=== PATIENT | male | born 1955 | race Caucasian/White ===

== ENCOUNTER → 2017-08-08 | Outpatient (CLI) | payer OTHER ==
[~2017-08-08] MED LIST: ATENOLOL50 MG PO; ATORVASTATIN CA20 MG PO; CITALOPRAM HBR20 MG PO; GLIPIZIDE5 MG PO; IOPAMIDOL 370 MG/ML 200 ML INFUS..BTL INJ ONE; LISINOPRIL10 MG PO; SODIUM CHLORIDE 0.9% 250ML 250 ML ONE
[2017-08-08 14:37] LABS: BLOOD UREA NITROGEN 13 mg/dL (7-26); BUN/CREATININE RATIO 13 (6-25); CREATININE, SERUM 1.04 mg/dL (0.72-1.25); EST GLOMERULAR FILTRATION RATE > 60 ML/MIN (60-)
--- NOTE | 2017-08-08 18:59 | Diagnostic Imaging Report ---
PROCEDURE: CT ABDOMEN \T\ PELVIS W/WO CONTRAST/HEMATURIA PROTOCOL TECHNIQUE: The abdomen and pelvis were scanned utilizing a multidetector helical scanner from the diaphragm to the lesser trochanter before and after the IV administration of 150 cc of Isovue 370 given as a split bolus, and the oral administration of water. Coronal and sagittal multiplanar reformations were obtained. COMPARISON: None. INDICATIONS: MICROSCOPIC HEMATURIA FINDINGS: LOWER THORAX: Unremarkable. HEPATOBILIARY: Borderline low attenuation of the hepatic parenchyma prominently in the right lobe, likely reflecting mild steatosis. No focal hepatic lesions. No biliary ductal dilation. Gallbladder is unremarkable. SPLEEN: No splenomegaly. PANCREAS: No focal masses or ductal dilatation. ADRENALS: No adrenal nodules. KIDNEYS/URETERS: 0.6 x 0.5 cm nonobstructing calculus in the inferior pole of the right kidney (series 3, image 81). No other renal or any ureteral calculi. No hydronephrosis, hydroureter or obstruction. 3.8 x 5.0 x 3.9 cm lobulated hypodense fluid density nonenhancing lesion in in the interpolar region of the right kidney (series 6, image 73), with possible thin noncalcified nonenhancing septation (sagittal postcontrast image 41). Mostly exophytic 0.6 cm fluid density nonenhancing lesion in the posterior interpolar region of the left kidney (series 6, image 72), consistent with a simple cyst. Mild bilateral nonspecific perinephric stranding. No solid enhancing masses. The there is good contrast opacification of bilateral renal collecting systems, renal pelves, left ureter, and proximal and mid aspects of the right ureter. No filling defects, strictures, or extrinsic compressions. PELVIC ORGANS/BLADDER: Bladder shows no focal lesions, wall thickening, or calculi. The prostate is unremarkable. Calcification of the vas deferens. PERITONEUM / RETROPERITONEUM: No free air or fluid. LYMPH NODES: No lymphadenopathy. VESSELS: Atherosclerotic calcification of the abdominal aorta and iliac vessels. GI TRACT: No bowel dilation or evidence of obstruction. BONES AND SOFT TISSUES: No acute bony abnormalities. No aggressive lytic lesion. Degenerative disc changes, predominantly at L5-S1. Soft tissues are grossly unremarkable. IMPRESSION: 1. 0.6 x 0.5 cm nonobstructing calculus in the inferior pole of the right kidney. No other renal or any ureteral or bladder calculi, hydronephrosis, or obstruction. 2. No filling defects, strictures, or extrinsic compressions in the opacified portions of the genitourinary tract. 3. Lobulated nonenhancing simple cystic lesion in the right kidney likely represents 2 adjacent simple cysts versus minimally complicated cyst. Nathaniel Carter M.D. Dictated by: Nathaniel Carter M.D. on 08/08/2017 at 19:07 Electronically approved by: Nathaniel Carter M.D. on 08/08/2017 at 19:07
== END ==
LOC: CT 13:39
PROVIDERS: ATTEND Urology
DX: R31.9 Hematuria, unspecified (principal)
CPT/HCPCS: 36415; 74178; 82565; 84520; J7050; Q9967

== ENCOUNTER → 2017-08-16 | Day surgery (SDC) | payer OTHER ==
[2017-08-15 10:48] LABS: BASOPHILS # (AUTO) 0.1 (0.0-0.1); BASOPHILS % 0.9 % (0.0-1.0); EOSINOPHILS # (AUTO) 0.2 (0.0-0.4); EOSINOPHILS % 3.1 % (0.0-6.0); HEMATOCRIT 47.6 % (38.2-49.6); HEMOGLOBIN 15.8 g/dL (14.0-18.0); LYMPHOCYTES # (AUTO) 1.4 (1.0-3.2); LYMPHOCYTES % 19.7 % (18.0-39.1); MEAN CORPUSCULAR HGB CONC 33.2 g/dL (31-35); MEAN CORPUSCULAR VOLUME 93.5 fL (81-99); MONOCYTES # (AUTO) 0.6 (0.2-0.8); MONOCYTES % 9.1 % (4.4-11.3); NEUTROPHILS # (AUTO) 4.7 (2.1-6.9); NEUTROPHILS % 66.3 % (38.7-80.0); PLATELET COUNT 187 x10e3/uL (140-360); RED BLOOD COUNT 5.09 x10e6/uL (4.3-5.7); RED CELL DISTRIBUTION WIDTH 13.2 % (11.7-14.4)
[2017-08-15 11:12] LABS: ANION GAP 13.5 mmol/L (8-16); CALCIUM 10.1 mg/dL (8.4-10.2); CREATININE, SERUM 1.24 mg/dL (0.72-1.25); POTASSIUM 5.5 mmol/L (3.5-5.1)
[~2017-08-16] MED LIST changes: +BELLADONNA/OPIUM 60 MG SUPP PR ONE; +FENTANYL CITRATE/PF 100MCG/2 ML INJ ONE; +INSULIN REGULAR, HUMAN 100 UNIT/1 ML 3ML VIAL ONE; -IOPAMIDOL 370 MG/ML 200 ML INFUS..BTL INJ ONE; +IOPAMIDOL 610MG/1ML 300 MG/ML VIAL IV ONE; +LIDOCAINE HCL 2% LOCAL INJ 5 ML SDV VIAL INJ ONE; +MIDAZOLAM HCL 2 MG/2 ML VIAL ONE; +PROPOFOL IV EMULSION 10 MG/ML 20 ML VIAL ONE; +SEVOFLURANE INHAL SOLN 250 ML PEN BTL ONE; -SODIUM CHLORIDE 0.9% 250ML 250 ML ONE
[2017-08-16] MEDS: CEFTRIAXONE SOD 1 GM VIAL ONE ×2 (10:03→10:05)
--- NOTE | 2017-10-15 05:29 | Operative Report ---
PREOPERATIVE DIAGNOSES 1. Right nephrolithiasis. 2. Hematuria. 3. Urinary tract infections. POSTOPERATIVE DIAGNOSES 1. Right nephrolithiasis. 2. Hematuria. 3. Urinary tract infections. OPERATIONS PERFORMED 1. Right-sided extracorporeal shock wave lithotripsy (separate procedure performed for the nephrolithiasis). 2. Cystourethroscopy with bilateral ureteral catheterization and retrograde ureteropyelography (separate procedure performed for the hematuria and urinary tract infection). 3. Interpretation of retrograde ureteral pyelography. 4. Supervision of fluoroscopy. No radiologist present. ANESTHESIA: General. COMPLICATIONS: None. CLINICAL SUMMARY: Inder Pace is a 62-year-old man with the above preoperative diagnoses. The patient had an episode of urinary retention for 1100 mL in February 2017. The patient has known renal cysts. He is brought to the operating room for the above procedures. He is aware of the risks of bleeding, infection, injury to adjacent structures and need for additional procedures and elected to proceed. OPERATIVE PROCEDURE IN DETAIL: Informed consent was verified. Inder Pace was properly identified, taken to the operating room, placed on the lithotripsy table in supine position. Anesthesia was uneventfully begun. The patient's right lower pole nephrolithiasis was not well visualized by fluoroscopy, therefore we repositioned the patient in dorsal lithotomy position with all pressure points well padded. His genitalia were prepared and draped in usual sterile fashion. A 22.5-Slovenian cystoscope sheath with the visual obturator in place was atraumatically inserted into the patient's urethra. It was guided down the unremarkable urethra through to the normal sphincteric region through the prostate bed which was significant for bilobar prostatic hypertrophy with kissing lateral lobes and elevated median bar. Panendoscopy of the urinary bladder revealed trabeculations, but no tumors, no stones, no diverticula. Normally positioned and configured ureteral orifices were identified. Ureteral catheter was used to cannulate the left ureter and retrograde ureteropyelograms were performed. It was then inserted to the right ureter and retrograde ureteropyelography was performed. Interpretation of retrograde ureteropyelography: Contrast was instilled in retrograde fashion bilaterally. The left side was unremarkable and without any tumors, stones nor diverticula. Unobstructed drainage was observed fluoroscopically. The right hand side exhibited no hydronephrosis and unremarkable ureter. There was a filling defect in the lower pole lizbeth which is consistent with stone noted on CT. We localized the lower lizbeth to that filling defect with biplanar fluoroscopy and proceeded with delivering 3000 shocks. The patient's ureteral catheter was then removed. The patient's bladder was drained. Cystoscope was withdrawn. Digital rectal examination was performed while placing a belladonna and opium suppository. This revealed a 40-g prostate that is smooth, non-fluctuant without any nodules. The patient was then uneventfully reversed from anesthesia and taken to the recovery room in stable condition. There were no complications to the procedure and he tolerated the procedure well. Explicit postoperative instructions were given and will follow the patient up in the office. Job#: [id number] GE cc:NELLY HORAN MD
== END | disposition home or self-care (01) ==
LOC: OR 10:06
PROVIDERS: ATTEND Urology
DX: N20.0 Calculus of kidney (principal); N40.0 Benign prostatic hyperplasia without lower urinary tract symptoms; R35.1 Nocturia; N32.89 Other specified disorders of bladder; N39.0 Urinary tract infection, site not specified; R81 Glycosuria; B37.49 Other urogenital candidiasis; E11.9 Type 2 diabetes mellitus without complications; I10 Essential (primary) hypertension; R00.1 Bradycardia, unspecified; Z01.810 Encounter for preprocedural cardiovascular examination; Z01.812 Encounter for preprocedural laboratory examination; Z80.51 Family history of malignant neoplasm of kidney
CPT/HCPCS: 36415 ×2; 50590; 80048; 82948; 83970; 84132; 84550; 85025; 93005; J0696; J2001; J2250; Q9967; 52648

== ENCOUNTER 2018-02-18 12:53 | Inpatient (IN) | payer OTHER ==
[~2018-02-18] VITALS: Ht 162.6 cm; Wt 88.5 kg
[~2018-02-18 12:53] MED LIST changes: -BELLADONNA/OPIUM 60 MG SUPP PR ONE; -FENTANYL CITRATE/PF 100MCG/2 ML INJ ONE; -INSULIN REGULAR, HUMAN 100 UNIT/1 ML 3ML VIAL ONE; -IOPAMIDOL 610MG/1ML 300 MG/ML VIAL IV ONE; -LIDOCAINE HCL 2% LOCAL INJ 5 ML SDV VIAL INJ ONE; -MIDAZOLAM HCL 2 MG/2 ML VIAL ONE; -PROPOFOL IV EMULSION 10 MG/ML 20 ML VIAL ONE; -SEVOFLURANE INHAL SOLN 250 ML PEN BTL ONE
[2018-02-18 13:34] LABS: BILIRUBIN,URINE NEGATIVE (NEGATIVE); CLARITY,URINE CLEAR (CLEAR); COLOR,URINE YELLOW (YELLOW); KETONES,URINE NEGATIVE (NEGATIVE); LEUKOCYTE ESTERASE ,URINE NEGATIVE (NEGATIVE); NITRITE,URINE NEGATIVE (NEGATIVE); PROTEIN,URINE DIPSTICK NEGATIVE (NEGATIVE); URINE UROBILINOGEN 0.2 mg/dL (0.2 - 1)
[2018-02-18 13:37] LABS: BASOPHILS % 0.4 % (0.0-1.0); EOSINOPHILS # (AUTO) 0.1 (0.0-0.4); EOSINOPHILS % 0.7 % (0.0-6.0); HEMATOCRIT 46.6 % (38.2-49.6); HEMOGLOBIN 15.7 g/dL (14.0-18.0); LYMPHOCYTES % 9.9 % (18.0-39.1); MEAN CORPUSCULAR HEMOGLOBIN 31.5 pg (28-32); MEAN CORPUSCULAR HGB CONC 33.7 g/dL (31-35); MEAN CORPUSCULAR VOLUME 93.6 fL (81-99); MONOCYTES # (AUTO) 0.7 (0.2-0.8); NEUTROPHILS # (AUTO) 8.5 (2.1-6.9); NEUTROPHILS % 81.5 % (38.7-80.0); PLATELET COUNT 180 x10e3/uL (140-360); RED BLOOD COUNT 4.98 x10e6/uL (4.3-5.7); RED CELL DISTRIBUTION WIDTH 12.4 % (11.7-14.4)
[2018-02-18 13:53] LABS: BACTERIA,URINE FEW /HPF; EPITHELIAL CELLS,URINE RARE /LPF; RBC,URINE 0-5 /HPF (0-5); WBC,URINE (MAN) 0-5 /HPF (0-5)
[2018-02-18 14:10] LABS: ALBUMIN 3.9 g/dL (3.5-5.0); ALBUMIN/GLOBULIN RATIO 1.1 (0.8-2.0); CALCIUM 10.8 mg/dL (8.4-10.2); CREATININE, SERUM 1.24 mg/dL (0.72-1.25)
[2018-02-18] MEDS ORDERED: ONDANSETRON HCL INJ 2 MG/ML VIAL IV STA (16:20)
[2018-02-18] MEDS ORDERED: MORPHINE SULFATE INJ 4 MG/ML INJ IV STA (16:20)
[2018-02-18] MEDS ORDERED: SODIUM CHLORIDE 0.9% 1000ML 1,000 ML IV STA (16:20)
[2018-02-18] MEDS ORDERED: SODIUM CHLORIDE 0.9% 50ML 50 ML ONE (18:09)
[2018-02-18] MEDS ORDERED: IOPAMIDOL 370 MG/ML 200 ML INFUS..BTL INJ ONE (18:09)
[2018-02-18] MEDS ORDERED: ONDANSETRON HCL INJ 2 MG/ML VIAL IV PRN (18:30)
[2018-02-18] MEDS: SODIUM CHLORIDE 0.9% 1000ML 1,000 ML IV SCH (19:10)
[2018-02-18] MEDS: MORPHINE SULFATE 2 MG/ML SYR IV PRN (19:10)
[2018-02-18] MEDS: PIPER-TAZ 3.375 GM 50 ML IV SCH (19:10)
[2018-02-18] MEDS ORDERED: MIDAZOLAM HCL 2 MG/2 ML VIAL ONE (19:18)
[2018-02-18] MEDS ORDERED: FENTANYL CITRATE/PF 100MCG/2 ML INJ ONE (19:18)
[2018-02-18 20:00] VITALS: BP 176/78
[2018-02-18 20:30] VITALS: BP 176/78
--- NOTE | 2018-02-18 20:52 | Diagnostic Imaging Report ---
PROCEDURE: CT ABDOMEN AND PELVIS WITH CONTRAST TECHNIQUE: The abdomen and pelvis were scanned utilizing a multidetector helical scanner from the diaphragm to the lesser trochanter after the IV administration of 100 cc of Isovue 370 and the oral administration of water. Coronal and sagittal multiplanar reformations were obtained. COMPARISON: [facility], CT, CT ABDOMEN/PELVIS WOW, 08/08/2017, 15:14. INDICATIONS: RIGHT LOWER QUAD FINDINGS: LOWER THORAX: Unremarkable. HEPATOBILIARY: Normal hepatic size and contour. Decreased attenuation of the liver compared to the spleen consistent with steatosis. No focal lesions. No biliary ductal dilation. Gallbladder is unremarkable. SPLEEN: No splenomegaly. PANCREAS: No focal masses or ductal dilatation. ADRENALS: No adrenal nodules. KIDNEYS/URETERS: No hydronephrosis, renal or ureteral calculi or solid mass lesions. Stable 4.6 x 3.8 cm adjacent simple cysts versus minimally complicated cyst. PELVIC ORGANS/BLADDER: Bladder and prostate are unremarkable. Calcification of the vas deferens. PERITONEUM / RETROPERITONEUM: No free air or fluid. LYMPH NODES: No lymphadenopathy. VESSELS: Marked atherosclerotic calcification of the infrarenal abdominal aorta and proximal iliac vessels. GI TRACT: Appendix is dilated, measuring approximately 1.2 cm in caliber and shows prominent wall enhancement, with mild periappendiceal fat stranding (series 2, images 54-59, coronal image 51 and sagittal image 41). No foci of extraluminal air or adjacent, well-defined, enhancing fluid collections. Rest of the bowel is unremarkable, without dilation or obstruction. BONES AND SOFT TISSUES: No aggressive lytic lesion. Degenerative disc changes L5-S1. Soft tissues are grossly unremarkable. IMPRESSION: 1. Findings consistent with acute appendicitis, in the appropriate clinical setting. No evidence of perforation or abscess formation. 2. No renal, ureteral, or bladder calculi, hydronephrosis, or obstruction. Stable 4.6 cm cystic lesion in the right kidney, which may represent 2 adjacent simple cysts versus a minimally complicated renal cyst. 3. Hepatic steatosis. No focal lesions. 4. Findings discussed with Goran Macias NP February 18, 2018 at 1820 hrs. Nathaniel Carter M.D. Dictated by: Nathaniel Carter M.D. on 02/18/2018 at 18:32 Electronically approved by: Nathaniel Carter M.D. on 02/18/2018 at 18:32
[2018-02-19] VITALS (9 sets, daily range): BP systolic 142–179; BP diastolic 61–83
[2018-02-19] MEDS ORDERED: PIPER-TAZ 3.375 GM / NS 50ML IV SCH
[2018-02-19] MEDS: SODIUM CHLORIDE 0.9% 1000ML 1,000 ML IV SCH (04:39)
[2018-02-19] MEDS: MORPHINE SULFATE 2 MG/ML SYR IV PRN (04:39)
[2018-02-19] MEDS ORDERED: NON-FORMULARY MEDICATION TOP SCH (06:00)
[2018-02-19] MEDS: PIPER-TAZ 3.375 GM 50 ML IV SCH ×4 (06:19→23:59)
[2018-02-19 06:51] LABS: ALANINE AMINOTRANSFERASE 24 IU/L (0-55); ALBUMIN 3.1 g/dL (3.5-5.0); ALBUMIN/GLOBULIN RATIO 1.1 (0.8-2.0); ALKALINE PHOSPHATASE 63 IU/L (40-150); ANION GAP 9.8 mmol/L (8-16); BLOOD UREA NITROGEN 12 mg/dL (7-26); BUN/CREATININE RATIO 11 (6-25); CALCIUM 8.9 mg/dL (8.4-10.2); CARBON DIOXIDE 30 mmol/L (22-29); CHLORIDE 101 mmol/L (98-107); CREATININE, SERUM 1.05 mg/dL (0.72-1.25); EST GLOMERULAR FILTRATION RATE > 60 ML/MIN (60-); GLUCOSE 150 mg/dL (74-118); POTASSIUM 3.8 mmol/L (3.5-5.1); SODIUM 137 mmol/L (136-145)
[2018-02-19 07:07] LABS: BASOPHILS % 0.5 % (0.0-1.0); EOSINOPHILS # (AUTO) 0.2 (0.0-0.4); EOSINOPHILS % 2.5 % (0.0-6.0); HEMATOCRIT 40.3 % (38.2-49.6); HEMOGLOBIN 13.2 g/dL (14.0-18.0); LYMPHOCYTES # (AUTO) 1.2 (1.0-3.2); LYMPHOCYTES % 14.9 % (18.0-39.1); MEAN CORPUSCULAR HEMOGLOBIN 31.6 pg (28-32); MEAN CORPUSCULAR HGB CONC 32.8 g/dL (31-35); MEAN CORPUSCULAR VOLUME 96.4 fL (81-99); MONOCYTES # (AUTO) 0.7 (0.2-0.8); MONOCYTES % 8.8 % (4.4-11.3); NEUTROPHILS # (AUTO) 5.8 (2.1-6.9); NEUTROPHILS % 72.7 % (38.7-80.0); PLATELET COUNT 149 x10e3/uL (140-360); RED BLOOD COUNT 4.18 x10e6/uL (4.3-5.7); RED CELL DISTRIBUTION WIDTH 12.8 % (11.7-14.4)
[2018-02-19] MEDS ORDERED: CLONIDINE HCL 0.3MG/24 HR PATCH TOP SCH (08:30)
[2018-02-19] MEDS ORDERED: DEXTROSE 50% SYRINGE 50 ML IV PRN (10:45)
[2018-02-19] MEDS ORDERED: HYDRALAZINE HCL 20 MG/ML VIAL IV PRN (10:45)
[2018-02-19] MEDS: PANTOPRAZOLE 40 MG 10ML VIAL IV SCH (11:11)
--- NOTE | 2018-02-19 11:13 | History and Physical ---
CHIEF COMPLAINT: Right lower quadrant pain associated with nausea, vomiting, acute appendicitis. HISTORY: This 62-year-old male with hypertension, dyslipidemia, and diabetes came in with acute onset of right lower quadrant abdominal pain. The patient had a CT scan of the abdomen and pelvis with contrast showing that he has consistent with acute appendicitis without any perforation or abscess. Patient, however, has hypertensive urgency also with nausea and vomiting. The patient is otherwise stable, pending for surgical intervention. PAST MEDICAL HISTORY: Hypertension, dyslipidemia, diabetes type 2. SURGICAL HISTORY: Rectal abscess surgery. SOCIAL HISTORY: Patient does not smoke or use alcohol. No recreational drugs. HOME MEDICATIONS: Atenolol, Lipitor, Celexa, glipizide, and lisinopril. ALLERGIES: NO KNOWN ALLERGIES. REVIEW OF SYSTEMS: As mentioned. PHYSICAL EXAMINATION VITAL SIGNS: Temperature 98. Blood pressure 153/71. Pulse rate 62. Respirations 18. GENERAL: The patient is not in acute distress. He is awake. HEENT: Normocephalic, atraumatic. Anicteric. NECK: Supple grossly. PULMONARY: Diminished breath sounds without any wheezing or rales. CARDIOVASCULAR: Regular rate and rhythm. ABDOMEN: Soft. Positive bowel sounds. Obese. Positive tenderness in right lower quadrant. No rebound or guarding. EXTREMITIES: No cyanosis or edema. NEUROLOGIC: No focal deficit. LABORATORY: Sodium is 137, potassium 3.8, chloride 101, bicarb 30, BUN 12, creatinine 1.05. Glucose 150. WBC 7.9. Hemoglobin 13. Hematocrit 40. Platelets 149. IMPRESSION 1. Acute appendicitis. 2. Baseline hypertension, diabetes and dyslipidemia. PLAN 1. Control blood pressure. 2. IV fluid rehydration. 3. IV antibiotics. 4. Dr. Fransico Jones consultation. The patient will need a laparoscopic appendectomy. 5. Will monitor the patient closely. 6. Pain control. Job#: [id number]
[2018-02-19] MEDS ORDERED: BUPIVACAINE 0.25% 30ML SDV INJ ONE (11:57)
[2018-02-19] MEDS ORDERED: LISINOPRIL 10 MG TAB PO SCH (12:00)
[2018-02-19] MEDS ORDERED: MORPHINE SULFATE 2 MG/ML SYR IV PRN (12:00)
[2018-02-19] MEDS: INSULIN LISPRO 100 UNIT/1 ML 3ML VIAL SQ SCH ×3 (12:00→23:59)
[2018-02-19] MEDS: LISINOPRIL 20 MG TAB PO SCH (12:05)
[2018-02-19] MEDS: ATENOLOL 50 MG TAB PO SCH (12:05)
[2018-02-19] MEDS ORDERED: ACETAMINOPHEN 1000 MG/100 ML IV PRN (16:00)
[2018-02-19] MEDS ORDERED: HYDROCODONE/APAP 7.5MG-325MG 1 EA TAB PO PRN (16:00)
--- NOTE | 2018-02-19 16:51 | Operative Report ---
DATE OF PROCEDURE: February 19, 2018 PREOPERATIVE DIAGNOSIS: Acute appendicitis. POSTOPERATIVE DIAGNOSIS: Acute appendicitis. OPERATION PERFORMED: Laparoscopic appendectomy. ANESTHESIA: General. COMPLICATIONS: None. ESTIMATED BLOOD LOSS: Minimal. DESCRIPTION OF PROCEDURE: With the patient lying in bed in the supine position under good general endotracheal anesthesia, the abdomen was prepped with Betadine solution and draped in the usual manner. A Veress needle was introduced into the umbilicus, and pneumoperitoneum was established without any difficulty. A 12 mm trocar was placed into the umbilicus, and a video laparoscope was placed into the intraabdominal cavity. Under direct vision, a 5 mm trocar was placed in the suprapubic region. Another 5 mm trocar was placed in the left lower quadrant. Video laparoscopy at this point revealed an acutely inflamed, nonperforated appendix which was stuck to the lateral wall on the right side. There was some fibrinous material in that area. All of this was aspirated, and the appendix was then mobilized off the lateral gutter. After this was done, the mesentery of the appendix was then divided with an application of the Endo FRANCISCO vascular stapler, and the base of the appendix was divided with another application of the Endo FRANCISCO stapler. The appendix was placed in a pouch and removed through the umbilicus without any difficulty. Video laparoscopy was then again carried out. Perfect hemostasis was ascertained. The abdomen was then irrigated, and all the excess fluid was aspirated. Perfect hemostasis was ascertained. The pneumoperitoneum was evacuated, and all the trocars were removed under direct vision. The midline fascia at the umbilicus was then closed with a [id number] of 0 Vicryl. All layers were infiltrated on the way out with solution of 1/4 percent Marcaine. Subcutaneous tissue was approximated with 3-0 Vicryl, and the skin was closed with clips. A dressing was applied. Sponge, lap and needle count was correct. The patient tolerated the procedure well and returned to the recovery room in stable condition. Job#: [id number] EV
[2018-02-20 00:03] VITALS: BP 141/63
[2018-02-20 04:22] VITALS: BP 152/65
[2018-02-20] MEDS: PIPER-TAZ 3.375 GM 50 ML IV SCH ×3 (05:13→17:56)
[2018-02-20 05:47] LABS: BASOPHILS % 0.3 % (0.0-1.0); EOSINOPHILS # (AUTO) 0.1 (0.0-0.4); EOSINOPHILS % 0.8 % (0.0-6.0); HEMATOCRIT 39.8 % (38.2-49.6); HEMOGLOBIN 13.2 g/dL (14.0-18.0); LYMPHOCYTES % 12.6 % (18.0-39.1); MEAN CORPUSCULAR HGB CONC 33.2 g/dL (31-35); MEAN CORPUSCULAR VOLUME 96.4 fL (81-99); MONOCYTES # (AUTO) 0.6 (0.2-0.8); NEUTROPHILS % 77.7 % (38.7-80.0); PLATELET COUNT 163 x10e3/uL (140-360); RED BLOOD COUNT 4.13 x10e6/uL (4.3-5.7); RED CELL DISTRIBUTION WIDTH 12.7 % (11.7-14.4)
[2018-02-20 06:08] LABS: ANION GAP 13.1 mmol/L (8-16); BLOOD UREA NITROGEN 12 mg/dL (7-26); BUN/CREATININE RATIO 10 (6-25); CALCIUM 9.1 mg/dL (8.4-10.2); CARBON DIOXIDE 30 mmol/L (22-29); CHLORIDE 101 mmol/L (98-107); CREATININE, SERUM 1.17 mg/dL (0.72-1.25); EST GLOMERULAR FILTRATION RATE > 60 ML/MIN (60-); GLUCOSE 141 mg/dL (74-118); POTASSIUM 4.1 mmol/L (3.5-5.1); SODIUM 140 mmol/L (136-145)
[2018-02-20] MEDS: INSULIN LISPRO 100 UNIT/1 ML 3ML VIAL SQ SCH ×3 (06:15→18:07)
[2018-02-20 07:31] VITALS: BP 162/72
[2018-02-20 07:48] VITALS: BP 162/72
[2018-02-20] MEDS: PANTOPRAZOLE 40 MG 10ML VIAL IV SCH (09:02)
[2018-02-20] MEDS: LISINOPRIL 20 MG TAB PO SCH (09:03)
[2018-02-20] MEDS: ATENOLOL 50 MG TAB PO SCH (09:03)
[2018-02-20 11:53] VITALS: BP 173/77
--- NOTE | 2018-02-20 13:40 | Discharge Summary ---
PCP: Dr. Diogo Castro DAIRY NUTRITION CONSULTANT: Dr. Fransico Jones FINAL DIAGNOSES 1. Acute appendicitis. 2. Status post laparoscopic appendectomy by Dr. Noel Jones. 3. Hypertensive urgency. SUMMARY: A 62-year-old male came in with acute appendicitis. Patient is stable. He underwent laparoscopic appendectomy on February 19, 2018. Postoperatively, the patient is stable. He has tolerated a clear liquid diet. His diet will be advanced by the surgeon today. If he is stable and able to tolerate diet, he should be able to go home today. He will resume his home medications on discharge. The patient is stable otherwise. No further workup needed. He will follow up with me as an outpatient. He will not return to work until he sees me next week. The patient was advised on not lifting, pushing or pulling. Resting is a must. [place] diet. Job#: [id number] ME
[2018-02-20 16:08] VITALS: BP 159/74
[2018-02-20] MEDS ORDERED: NEOSTIGMINE 5 MG/5ML SYR ONE (19:16)
[2018-02-20] MEDS ORDERED: SEVOFLURANE INHAL SOLN 250 ML PEN BTL ONE (19:16)
[2018-02-20] MEDS ORDERED: PROPOFOL IV EMULSION 10 MG/ML 20 ML VIAL ONE (19:16)
[2018-02-20] MEDS ORDERED: GLYCOPYRROLATE INJ 1MG/ 5 ML SYR ONE (19:16)
[2018-02-20] MEDS ORDERED: DEXAMETHASONE SOD PHOS INJ 4 MG/ML VIAL ONE (19:16)
[2018-02-20] MEDS ORDERED: LIDOCAINE HCL 2% LOCAL INJ 5 ML SDV VIAL INJ ONE (19:16)
[2018-02-20] MEDS ORDERED: ROCURONIUM BROMIDE 10 MG/ML 5ML VIAL ONE (19:16)
[2018-02-20] MEDS ORDERED: ONDANSETRON HCL INJ 2 MG/ML VIAL ONE (19:16)
[2018-02-20] MEDS ORDERED: TYLENOL WITH C1 EACH PO (19:47)
[2018-02-20] MEDS ORDERED: ZOFRAN ODT4 MG SL (19:48)
[2018-02-20] MEDS ORDERED: LEVAQUIN500 MG PO (19:49)
== END 2018-02-20 20:14 | disposition home or self-care (01) | DRG 343 ==
LOC: ER 12:53 → ERHOLD 18:47 → MED/SURG3 19:40
PROVIDERS: ADMIT Internal Medicine; ATTEND Internal Medicine
PROC: 0DTJ4ZZ Resection of Appendix, Percutaneous Endoscopic Approach (ICD-10-PCS; principal; 2018-02-19 13:00)
DX: K35.80 Unspecified acute appendicitis (principal); I10 Essential (primary) hypertension; E78.5 Hyperlipidemia, unspecified; E11.9 Type 2 diabetes mellitus without complications; I16.0 Hypertensive urgency; Z79.84 Long term (current) use of oral hypoglycemic drugs
CPT/HCPCS: 36415; 74177; 80048; 80053; 81001; 82948; 85025; 88304; 93005; 99284; C1766; J1100; J2001; J2250; J2270; J2405; J2543; J7030; Q9967

== ENCOUNTER 2019-05-12 01:01 | Emergency (ER) | payer OTHER ==
[~2019-05-12] VITALS: Ht 162.6 cm; Wt 88.5 kg
[~2019-05-12 01:01] MED LIST changes: +LEVAQUIN500 MG PO; +TYLENOL WITH C1 EACH PO; +ZOFRAN ODT4 MG SL
[2019-05-12] MEDS ORDERED: LIDOCAINE JELLY 2% 10ML URO-JET TOP ONE (01:30)
[2019-05-12 02:24] LABS: BILIRUBIN,URINE NEGATIVE (NEGATIVE); CLARITY,URINE CLEAR (CLEAR); COLOR,URINE YELLOW (YELLOW); KETONES,URINE NEGATIVE (NEGATIVE); LEUKOCYTE ESTERASE ,URINE NEGATIVE (NEGATIVE); NITRITE,URINE NEGATIVE (NEGATIVE); PROTEIN,URINE DIPSTICK NEGATIVE (NEGATIVE); URINE UROBILINOGEN 0.2 mg/dL (0.2 - 1)
--- NOTE | 2019-05-12 02:33 | NUR ---
680cc output after coude 16fr smith insertion, patient tolerated procedure well, sterile technique used, patient verbalizes feeling better after smith insertion. no complications occured during procedure. patient to be discharged with smith bag, education given to patient.
[2019-05-12 02:37] LABS: WBC,URINE (MAN) 0-5 /HPF (0-5)
[2019-05-12 02:38] LABS: BACTERIA,URINE RARE /HPF; EPITHELIAL CELLS,URINE RARE /LPF; RBC,URINE 0-5 /HPF (0-5)
[2019-05-12 02:42] VITALS: BP 124/75
== END 2019-05-12 02:56 | disposition home or self-care (01) ==
LOC: ER 01:01
DX: N40.1 Benign prostatic hyperplasia with lower urinary tract symptoms (principal); R33.8 Other retention of urine; I10 Essential (primary) hypertension; E11.9 Type 2 diabetes mellitus without complications; E78.5 Hyperlipidemia, unspecified; F32.9 Major depressive disorder, single episode, unspecified; Z79.84 Long term (current) use of oral hypoglycemic drugs
CPT/HCPCS: 51700; 51702; 81001; 87086; 99283